=== PATIENT | male | born 1940 | race Asian ===

== ENCOUNTER 2017-05-16 05:29 | Day surgery (SDC) | payer OTHER ==
[~2017-05-16] VITALS: Ht 162.6 cm; Wt 58.2 kg
[~2017-05-16 05:29] MED LIST: DUTA.5 PO; LOSA1TAB7 PO; VITAD1000 PO
[2017-05-16] MEDS ORDERED: SODIUM CHLORIDE 0.9% 1,000 ML IV ONE ×2 (06:02→06:15)
[2017-05-16] MEDS ORDERED: FentaNYL CITRATE-PF 100 MCG/2 ML VIAL ONE (07:30)
[2017-05-16] MEDS ORDERED: MIDAZOLAM HCL 2 MG/2 ML VIAL ONE (07:30)
[2017-05-16] MEDS ORDERED: MethylPREDNISolone SOD SUCC 125 MG/2 ML VIAL ONE (08:36)
[2017-05-16] MEDS ORDERED: MethylPREDNISolone SOD SUCC 125 MG/2 ML VIAL IVP ONE (09:00)
[2017-05-16] MEDS ORDERED: ALBUTEROL SULFATE 2.5 MG/0.5 ML NEB SOLUTION NEB ONE (17:22)
[2017-05-16] MEDS ORDERED: EPINEPHrine 1:1,000 [1 MG/ML] AMP IM ONE (17:22)
[2017-05-16] MEDS ORDERED: BENZOCAINE 20% 50 MCG/SPRAY 57 GM TP ONE (17:22)
[2017-05-16] MEDS ORDERED: LIDOCAINE HCL 2% 30 ML JELLY TP ONE (17:22)
[2017-05-16] MEDS ORDERED: LIDOCAINE HCL 4% 50 ML SOLUTION TP ONE (17:22)
[2017-05-16] MEDS ORDERED: OXYGEN THERAPY IH SCH (20:00)
== END 2017-05-16 09:50 | disposition home or self-care (01) ==
LOC: SURGERY 05:29
PROVIDERS: ATTEND Internal Medicine Critical Care Medicine
DX: J38.4 Edema of larynx (principal); B37.0 Candidal stomatitis; M19.90 Unspecified osteoarthritis, unspecified site; K29.70 Gastritis, unspecified, without bleeding; Z72.89 Other problems related to lifestyle; Z98.890 Other specified postprocedural states; Z86.19 Personal history of other infectious and parasitic diseases
CPT/HCPCS: 31623; 31624; 71010; 87015 ×2; 87070; 87077; 87101; 87147; 87186; 87205; 87220; 88108; 88312; 93005; J0171; J2250; J2930; J3010; J7030